=== PATIENT | male | born 1965 | race Caucasian/White ===

== ENCOUNTER 2022-10-31 15:45 | Inpatient (IN) | payer BC, OTHER ==
[~2022-10-31] VITALS: Ht 182.9 cm; Wt 109.4 kg
[2022-10-31 16:13] LABS: Basophils # (auto) 0.1 10 ^3/uL (0-0.2); Basophils % (auto) 0.8 % (0.0-2.0); Eosinophils # (auto) 0.5 10 ^3/uL (0-0.8); Eosinophils % (auto) 6.7 % (0.0-7.0); Hematocrit 50.5 % (41.0-53.0); Hemoglobin 17.2 g/dL (13.5-17.5); Lymphocytes # (auto) 2.1 10 ^3/uL (0.4-5.4); Lymphocytes % (auto) 28.2 % (10.0-50.0); Mean Corpuscular Hemoglobin 31.7 pg (28.0-32.0); Mean Corpuscular Volume 93.3 fL (80.0-100.0); Monocytes # (auto) 0.7 10 ^3/uL (0-1.3); Monocytes % (auto) 9.1 % (0.0-12.0); Neutrophils # (auto) 4.1 10 ^3/uL (1.6-8.6); Neutrophils % (auto) 55.2 % (37.0-80.0); Red Blood Cells 5.42 10^6/uL (4.5-5.90); Red Cell Distribution Width 14.2 % (11.8-14.3); White Blood Cell 7.5 10^3/uL (4.4-10.8)
[2022-10-31 16:27] LABS: Albumin 4.3 g/dL (3.4-5.0); Potassium 4.2 mmol/L (3.5-5.1)
[2022-10-31 16:30] LABS: Bilirubin, Total 0.7 mg/dL (0.2-1.0)
[2022-10-31] MEDS ORDERED: HEPARIN DRIP/D5W 100UNITS/ML 250 ML IV SCH (18:00)
[2022-10-31] MEDS ORDERED: HEPARIN SODIUM (PORCINE) 5000 UNITS/ML 1ML VIAL IV ONE (18:00)
[2022-10-31] MEDS ORDERED: MORPHINE SULFATE INJ 2 MG/ml SYRG IV PRN (18:30)
[2022-10-31] MEDS ORDERED: ACETAMINOPHEN 325 MG TAB PO PRN (18:30)
[2022-10-31] MEDS ORDERED: PANTOPRAZOLE 40 MG/10 ML VIAL INJ IV ONE (18:30)
[2022-10-31] MEDS ORDERED: NITROGLYCERIN 0.4 MG SL TAB SL PRN (18:30)
[2022-10-31 18:37] LABS: INR 1.07 (0.9-1.15); Partial Thromboplastin Time 28.1 sec (24.6-33.4)
[2022-10-31] MEDS ORDERED: NITROGLYCERIN 0.4 MG SL TAB SL ONE (18:45)
[2022-10-31 19:44] LABS: Cholesterol 138 mg/dL (< 200); HDL Cholesterol 47 mg/dL (40-59); LDL Cholesterol 79 mg/dL (< 100); Triglycerides 157 mg/dL (< 150)
[2022-10-31 20:05] LABS: Urine Bacteria NONE SEEN /hpf (None Seen); Urine Blood Negative /uL (Negative); Urine Mucus FEW (None Seen); Urine WBC 1 /hpf (0 - 3)
[2022-10-31] MEDS: SODIUM CHLORIDE 0.9% 1,000 ML IV SCH (21:41)
[2022-11-01] VITALS (9 sets, daily range): BP systolic 108–124; BP diastolic 60–73
[2022-11-01 02:36] LABS: INR 1.08 (0.9-1.15); Partial Thromboplastin Time 35.9 sec (24.6-33.4)
[2022-11-01 06:31] LABS: Basophils # (auto) 0.1 10 ^3/uL (0-0.2); Eosinophils # (auto) 0.5 10 ^3/uL (0-0.8); Eosinophils % (auto) 6.3 % (0.0-7.0); Hemoglobin 16.2 g/dL (13.5-17.5); Lymphocytes # (auto) 2.5 10 ^3/uL (0.4-5.4); Mean Corpuscular Hemoglobin 31.7 pg (28.0-32.0); Mean Corpuscular Hgb Conc. 34.5 g/dL (32.0-36.0); Monocytes # (auto) 0.7 10 ^3/uL (0-1.3); Monocytes % (auto) 7.7 % (0.0-12.0); Neutrophils # (auto) 4.8 10 ^3/uL (1.6-8.6); Nucleated Red Blood Cells % 0.1 %; Red Blood Cells 5.11 10^6/uL (4.5-5.90); Red Cell Distribution Width 14.1 % (11.8-14.3); White Blood Cell 8.7 10^3/uL (4.4-10.8)
[2022-11-01 06:33] LABS: INR 1.13 (0.9-1.15); Partial Thromboplastin Time 39.8 sec (24.6-33.4)
[2022-11-01 07:05] LABS: Albumin 3.6 g/dL (3.4-5.0); BUN/Creatinine Ratio 21.1; Bilirubin, Total 0.8 mg/dL (0.2-1.0); Calcium 8.5 mg/dL (8.5-10.1); Total Protein 6.2 g/dL (6.4-8.2)
[2022-11-01 09:23] LABS: INR 1.11 (0.9-1.15); Partial Thromboplastin Time 44.6 sec (24.6-33.4)
[2022-11-01] MEDS: PANTOPRAZOLE 40 MG/10 ML VIAL INJ IV SCH (10:05)
[2022-11-01] MEDS: SODIUM CHLORIDE 0.9% 1,000 ML IV SCH ×2 (11:10→20:30)
[2022-11-01] MEDS ORDERED: ANGIOMAX 250 MG VIAL IV ONE (12:06)
[2022-11-01] MEDS ORDERED: VERAPAMIL 2.5MG/ML INJ 2ML VIAL IV ONE (12:07)
[2022-11-01] MEDS ORDERED: SODIUM CHL 0.9% 0 ML ONE (12:07)
[2022-11-01] MEDS ORDERED: MIDAZOLAM HCL 2MG/2ML 2ml VIAL (1mg/ml) ONE (12:07)
[2022-11-01] MEDS ORDERED: fentaNYL CITRATE 100 MCG/2 ML VL ONE (12:07)
[2022-11-01] MEDS ORDERED: HEPARIN SODIUM (PORCINE) 5000 UNITS/ML 1ML VIAL ONE (12:07)
[2022-11-01] MEDS ORDERED: LISINOPRIL 20 MG TAB PO ONE (12:30)
[2022-11-01] MEDS ORDERED: LIDOCAINE 2%HCL (LOCAL ANESTH.) INJ 20ML MDV ONE (12:41)
[2022-11-01] MEDS ORDERED: ATROPINE SULF 1 MG/10ml SYR ONE (12:57)
[2022-11-01] MEDS ORDERED: IOHEXOL 350 MG/ML 100ML IJ ONE (14:22)
[2022-11-01 17:40] LABS: INR 1.09 (0.9-1.15); Partial Thromboplastin Time 28.2 sec (24.6-33.4)
[2022-11-01] MEDS ORDERED: ATOR40TA52 PO (18:57)
[2022-11-01] MEDS: METOPROLOL TARTRATE 50 MG TAB PO SCH (22:44)
[2022-11-01] MEDS: ATORVASTATIN 20 MG TAB PO SCH (22:44)
[2022-11-02 05:00] VITALS: BP 119/63
[2022-11-02] MEDS: SODIUM CHLORIDE 0.9% 1,000 ML IV SCH (05:55)
[2022-11-02 08:50] VITALS: BP 127/64
[2022-11-02] MEDS: PANTOPRAZOLE 40 MG/10 ML VIAL INJ IV SCH (09:34)
[2022-11-02] MEDS: ASPirin 81 mg TAB PO SCH (09:36)
[2022-11-02] MEDS: METOPROLOL TARTRATE 50 MG TAB PO SCH ×2 (09:40→20:49)
[2022-11-02] MEDS: LISINOPRIL 20 MG TAB PO SCH (09:41)
[2022-11-02 12:30] VITALS: BP 125/65
[2022-11-02 16:50] VITALS: BP 129/57
[2022-11-02] MEDS: MELATONIN 5 MG TAB PO SCH (20:49)
[2022-11-02] MEDS: ATORVASTATIN 20 MG TAB PO SCH (20:49)
[2022-11-02 22:00] VITALS: BP 123/64
[2022-11-03 05:00] VITALS: BP 111/62
[2022-11-03 09:00] VITALS: BP 104/61
[2022-11-03] MEDS: METOPROLOL TARTRATE 50 MG TAB PO SCH ×2 (10:00→21:17)
[2022-11-03] MEDS: ASPirin 81 mg TAB PO SCH (10:00)
[2022-11-03] MEDS: PANTOPRAZOLE 40 MG/10 ML VIAL INJ IV SCH (10:00)
[2022-11-03] MEDS: LISINOPRIL 20 MG TAB PO SCH (10:00)
[2022-11-03 13:00] VITALS: BP 122/47
[2022-11-03] MEDS: SODIUM CHLORIDE 0.9% 1,000 ML IV SCH ×2 (13:10→14:10)
[2022-11-03 17:00] VITALS: BP 121/64
[2022-11-03] MEDS: ATORVASTATIN 20 MG TAB PO SCH (21:16)
[2022-11-03] MEDS: MELATONIN 5 MG TAB PO SCH (21:17)
[2022-11-03 22:00] VITALS: BP 123/66
[2022-11-04 05:00] VITALS: BP 110/58
[2022-11-04 09:00] VITALS: BP 117/59
[2022-11-04] MEDS: LISINOPRIL 20 MG TAB PO SCH (10:53)
[2022-11-04] MEDS: METOPROLOL TARTRATE 50 MG TAB PO SCH ×2 (10:54→21:51)
[2022-11-04] MEDS: PANTOPRAZOLE 40 MG/10 ML VIAL INJ IV SCH (10:54)
[2022-11-04 13:00] VITALS: BP 134/64
[2022-11-04] MEDS: ASPirin 81 mg TAB PO SCH (14:01)
[2022-11-04 17:00] VITALS: BP 111/53
[2022-11-04 19:40] VITALS: BP_DIAS 0
[2022-11-04] MEDS: ATORVASTATIN 20 MG TAB PO SCH (21:50)
[2022-11-04] MEDS: MELATONIN 5 MG TAB PO SCH (21:55)
[2022-11-04 22:00] VITALS: BP 128/59
[2022-11-05] MEDS: SODIUM CHLORIDE 0.9% 1,000 ML IV SCH ×2 (03:19→15:10)
[2022-11-05 05:00] VITALS: BP 114/60
[2022-11-05 08:30] VITALS: BP 115/74
[2022-11-05] MEDS: ASPirin 81 mg TAB PO SCH (10:47)
[2022-11-05] MEDS: PANTOPRAZOLE 40 MG/10 ML VIAL INJ IV SCH (10:47)
[2022-11-05] MEDS: ATORVASTATIN 20 MG TAB PO SCH ×2 (10:47→21:40)
[2022-11-05] MEDS: LISINOPRIL 20 MG TAB PO SCH (10:48)
[2022-11-05] MEDS: METOPROLOL TARTRATE 50 MG TAB PO SCH ×2 (10:48→21:41)
[2022-11-05] MEDS ORDERED: KETOROLAC TROMETH 30 MG/ML 1ML VIAL IV ONE (11:30)
[2022-11-05 14:00] VITALS: BP 123/62
[2022-11-05 16:30] VITALS: BP 119/74
[2022-11-05 20:00] VITALS: BP 136/67
[2022-11-05] MEDS: MELATONIN 5 MG TAB PO SCH (21:40)
[2022-11-05 22:00] VITALS: BP 136/67
[2022-11-06 05:00] VITALS: BP 124/78
[2022-11-06] MEDS: SODIUM CHLORIDE 0.9% 1,000 ML IV SCH (08:00)
[2022-11-06] MEDS: PANTOPRAZOLE 40 MG/10 ML VIAL INJ IV SCH (08:52)
[2022-11-06] MEDS: ASPirin 81 mg TAB PO SCH (08:53)
[2022-11-06] MEDS: LISINOPRIL 20 MG TAB PO SCH (08:54)
[2022-11-06] MEDS: METOPROLOL TARTRATE 50 MG TAB PO SCH (08:55)
[2022-11-06 09:00] VITALS: BP 114/63
[2022-11-06 13:00] VITALS: BP 119/67
[2022-11-06 17:00] VITALS: BP 102/61
== END 2022-11-06 21:00 | disposition short-term general hospital (02) | DRG 282 ==
LOC: ER 15:45 → TELE 18:35 → TELE-WESTW 11-01 14:58
PROVIDERS: ADMIT Nurse Practitioner Family; ATTEND Family Medicine
PROC: 4A023N7 Measurement of Cardiac Sampling and Pressure, Left Heart, Percutaneous Approach (ICD-10-PCS; principal; 2022-11-01)
PROC: B211YZZ Fluoroscopy of Multiple Coronary Arteries using Other Contrast (ICD-10-PCS; 2022-11-01)
PROC: B215YZZ Fluoroscopy of Left Heart using Other Contrast (ICD-10-PCS; 2022-11-01)
DX: I21.4 Non-ST elevation (NSTEMI) myocardial infarction (principal); E78.00 Pure hypercholesterolemia, unspecified; I71.21 Aneurysm of the ascending aorta, without rupture; Z95.2 Presence of prosthetic heart valve; Z20.822 Contact with and (suspected) exposure to COVID-19; I10 Essential (primary) hypertension; E66.9 Obesity, unspecified; Z68.33 Body mass index [BMI] 33.0-33.9, adult; I35.1 Nonrheumatic aortic (valve) insufficiency
CPT/HCPCS: 36415; 71045; 71275; 80053; 80061; 81001; 83036; 84443; 84484; 85025; 85379; 85610; 85730; 87426; 93005; 93306; 96365; 96375; 99152; 99153; 99291; C9113; G0378; J2250